=== PATIENT | male | born 1960 | race Asian ===

== ENCOUNTER 2020-08-04 22:20 | Emergency (ER) | payer OTHER ==
[~2020-08-04] VITALS: Ht 182.9 cm; Wt 88.9 kg
[2020-08-04 22:30] VITALS: BP 97/59; TEMP 98.5
[2020-08-04 22:41] LABS: PLATELET COUNT 212 K/uL (142-355)
[2020-08-04 22:50] LABS: POTASSIUM 3.9 mmol/L (3.6-5.2)
[2020-08-05] MEDS ORDERED: CLOZAPINE25 MG PO (02:59)
[2020-08-05] MEDS ORDERED: PAROXETINE30 MG PO (03:03)
[2020-08-05] MEDS ORDERED: TRAZ50TA36 PO (03:05)
[2020-08-05] MEDS ORDERED: DIVA250T2 PO (03:21)
[2020-08-05] MEDS ORDERED: DIVA500T2 PO (03:22)
[2020-08-05] MEDS ORDERED: LACTULOSE10 GM/15 M PO (03:27)
[2020-08-05] MEDS ORDERED: RISP0.5T2 PO (03:40)
[2020-08-05] MEDS ORDERED: RISP2TAB2 PO (03:42)
[2020-08-05] MEDS ORDERED: TRILEPTAL300 MG PO (03:43)
[2020-08-05] MEDS ORDERED: GABA400C2 PO (03:44)
[2020-08-05] MEDS ORDERED: PROPRANOLOL HYD10 MG PO (03:46)
[2020-08-05] MEDS ORDERED: PROVERA10 MG PO (03:47)
[2020-08-05] MEDS ORDERED: HALO5INJ3 INJ (03:55)
[2020-08-05] MEDS ORDERED: IBU-200200 MG PO (03:59)
== END 2020-08-05 00:09 | disposition other institution (70) ==
LOC: ED 22:20
PROVIDERS: Family Medicine
DX: R46.89 Other symptoms and signs involving appearance and behavior (principal); I10 Essential (primary) hypertension; Z11.52 Encounter for screening for COVID-19; Z04.6 Encounter for general psychiatric examination, requested by authority
CPT/HCPCS: 80053; 85027; 87635; 93005; 99283; U0003